=== PATIENT | male | born 1940 | race Caucasian/White ===

== ENCOUNTER 2022-09-16 08:09 | Day surgery (SDC) | payer MEDICARE, BC ==
[2022-09-15 14:30] LABS: BASOPHILS # (AUTO) 0.1 X10'3 (0-0.2); BASOPHILS % (AUTO) 0.8 % (0-1); EOSINOPHILS # (AUTO) 0.3 X10'3 (0-0.9); EOSINOPHILS % (AUTO) 4.3 % (0-6); HEMATOCRIT 39.5 % (42.0-52.0); HEMOGLOBIN 13.2 g/dl (14.0-17.9); LYMPHOCYTES # (AUTO) 1.6 X10'3 (1.1-4.8); LYMPHOCYTES % (AUTO) 23.5 % (21-51); MEAN CORPUSCULAR HEMOGLOBIN 31.7 PG (27.0-31.0); MEAN CORPUSCULAR HGB CONC 33.4 g/dL (33.0-36.5); MEAN CORPUSCULAR VOLUME 94.8 FL (78-98); MEAN PLATELET VOLUME 6.4 FL (7.4-10.4); MONOCYTES # (AUTO) 0.7 X10'3 (0-0.9); MONOCYTES % (AUTO) 10.1 % (2-12); NEUTROPHILS # (AUTO) 4.1 X10'3 (1.8-7.7); NEUTROPHILS % (AUTO) 61.3 % (42-75); PLATELET COUNT 226 X10'3 (140-440); RED BLOOD COUNT 4.16 X10'6 (4.70-6.10); RED CELL DISTRIBUTION WIDTH 13.8 % (11.5-14.5); WHITE BLOOD COUNT 6.8 X10'3 (4.5-11.0)
[2022-09-15 14:44] LABS: APTT 25 SECONDS (22-32)
[2022-09-15 14:47] LABS: ALANINE AMINOTRANSFERASE 30 U/L (12-78); ALBUMIN 3.7 G/DL (3.4-5.0); ALBUMIN/GLOBULIN RATIO 1.2 (1.1-1.5); ALKALINE PHOSPHATASE 75 IU/L (46-116); ANION GAP 6 (8-16); ASPARTATE AMINO TRANSFERASE 20 U/L (10-37); BILIRUBIN,TOTAL 0.7 MG/DL (0.1-1.0); BLOOD UREA NITROGEN 21 MG/DL (7-18); CALCIUM 8.9 MG/DL (8.5-10.1); CHLORIDE 104 MMOL/L (99-107); CREATININE 0.75 MG/DL (0.60-1.10); GLUCOSE 148 MG/DL (70-104); POTASSIUM 3.8 MMOL/L (3.5-5.1); SODIUM 139 MMOL/L (135-145); TOTAL CARBON DIOXIDE 29.4 MMOL/L (24-32); TOTAL PROTEIN 6.9 G/DL (6.4-8.2); eGFR > 90 ML/MIN
[2022-09-16] VITALS (14 sets, daily range): BP systolic 100–158; BP diastolic 40–72
[~2022-09-16] VITALS: Ht 172.7 cm; Wt 67.9 kg
[~2022-09-16 08:09] MED LIST: ASPI-1053 PO; ATOR40TA PO; CARV20CP PO; GALA16CA PO; LISI-642 PO; METF500T PO; OMEP20CA16 PO; SERT25TA PO
[2022-09-16] MEDS ORDERED: NITR0.4T51 (08:29)
[2022-09-16] MEDS ORDERED: SILD100T70 PO (08:29)
[2022-09-16] MEDS ORDERED: diphenhydrAMINE 25mg capsule PO PRN (08:35)
[2022-09-16] MEDS ORDERED: normal saline 1,000 ML IV SCH (08:35)
[2022-09-16] MEDS ORDERED: MESSAGE TO PHARMACY PO ONE (08:35)
[2022-09-16] MEDS ORDERED: LORazepam 0.5 MG tablet PO PRN (08:35)
[2022-09-16] MEDS ORDERED: nitroGLYCERIN 0.4mg SUBLingual tab SL PRN ×2 (08:35→11:50)
[2022-09-16] MEDS ORDERED: insulin Lispro (HumaLOG) vial - multi-dose SQ SCH (08:35)
[2022-09-16] MEDS ORDERED: METF-436 PO (08:39)
[2022-09-16] MEDS ORDERED: iohexol 350MG/ML 100ml bottle IV ONE ×2 (09:38→10:39)
[2022-09-16] MEDS ORDERED: midazolam 1 mg/ML 2ml injection ONE (09:38)
[2022-09-16] MEDS ORDERED: LIDOcaine 1% 30ml preserv. free vial ONE (09:38)
[2022-09-16] MEDS ORDERED: fentaNYL/PF 50MCG/1 ML 2ML syringe ONE (09:38)
[2022-09-16] MEDS ORDERED: iohexol 350 MG/ML 50ML vial IV ONE (09:38)
[2022-09-16] MEDS ORDERED: clopidogrel 300mg tablet ONE (10:55)
[2022-09-16 11:22] LABS: ISTAT HGB ART 12.2 g/dl (14.0-17.9); ISTAT Hct ART 36 %PCV (42-52); ISTAT O2 SATURATION ARTERIAL 98 % (95-98); ISTAT SOURCE ART
[2022-09-16] MEDS ORDERED: ondansetron/PF 4mg/2ml inj IV PRN (11:50)
[2022-09-16] MEDS ORDERED: OXAZEpam 15mg capsule PO PRN (11:50)
[2022-09-16] MEDS ORDERED: normal saline 1000ml 1,000 ML IV SCH (11:50)
[2022-09-16] MEDS ORDERED: proCHLORperazine 10 MG/2 ml inj IV PRN (11:50)
[2022-09-16] MEDS ORDERED: insulin glargine (Lantus) pen - multi-dose SQ SCH (21:00)
[2022-09-21 07:55] LABS: ISTAT Hct MIX 37 %PCV (42-52); ISTAT O2 SATURATION MIX VENOUS 75 % (60-80); ISTAT SOURCE VEN
== END 2022-09-16 17:50 | disposition home or self-care (01) ==
LOC: SSTAY O 08:09
PROVIDERS: ATTEND Internal Medicine Cardiovascular Disease
DX: I25.719 Atherosclerosis of autologous vein coronary artery bypass graft(s) with unspecified angina pectoris (principal); I34.0 Nonrheumatic mitral (valve) insufficiency; I10 Essential (primary) hypertension; E11.9 Type 2 diabetes mellitus without complications; K21.9 Gastro-esophageal reflux disease without esophagitis; F32.9 Major depressive disorder, single episode, unspecified; Z88.5 Allergy status to narcotic agent; Z90.49 Acquired absence of other specified parts of digestive tract; Z98.890 Other specified postprocedural states; Z79.899 Other long term (current) drug therapy; Z79.01 Long term (current) use of anticoagulants; Z79.82 Long term (current) use of aspirin; Z79.84 Long term (current) use of oral hypoglycemic drugs
CPT/HCPCS: 36415; 71046; 80053; 82803; 82948; 85014; 85025; 85610; 85730; 93461; J1644; J1815; J2250; J3010; J3490; J7030; Q0163; Q9967; 99152; 99153; A6258; A6449; C1751; C1760

== ENCOUNTER 2022-10-14 10:17 | Observation (INO) | payer MEDICARE, BC ==
[2022-10-12 13:45] LABS: BASOPHILS # (AUTO) 0.1 X10'3 (0-0.2); BASOPHILS % (AUTO) 1.3 % (0-1); EOSINOPHILS # (AUTO) 0.3 X10'3 (0-0.9); EOSINOPHILS % (AUTO) 4.8 % (0-6); HEMATOCRIT 39.8 % (42.0-52.0); HEMOGLOBIN 13.6 g/dl (14.0-17.9); LYMPHOCYTES # (AUTO) 1.6 X10'3 (1.1-4.8); LYMPHOCYTES % (AUTO) 24.8 % (21-51); MEAN CORPUSCULAR HEMOGLOBIN 32.5 PG (27.0-31.0); MEAN CORPUSCULAR HGB CONC 34.1 g/dL (33.0-36.5); MEAN CORPUSCULAR VOLUME 95.3 FL (78-98); MEAN PLATELET VOLUME 6.2 FL (7.4-10.4); MONOCYTES # (AUTO) 0.7 X10'3 (0-0.9); MONOCYTES % (AUTO) 10.4 % (2-12); NEUTROPHILS # (AUTO) 3.9 X10'3 (1.8-7.7); NEUTROPHILS % (AUTO) 58.7 % (42-75); PLATELET COUNT 235 X10'3 (140-440); RED BLOOD COUNT 4.17 X10'6 (4.70-6.10); RED CELL DISTRIBUTION WIDTH 13.5 % (11.5-14.5); WHITE BLOOD COUNT 6.6 X10'3 (4.5-11.0)
[2022-10-12 13:54] LABS: APTT 24 SECONDS (22-32)
[2022-10-12 13:56] LABS: ALANINE AMINOTRANSFERASE 33 U/L (12-78); ALBUMIN 3.8 G/DL (3.4-5.0); ALBUMIN/GLOBULIN RATIO 1.2 (1.1-1.5); ANION GAP 13 (8-16); ASPARTATE AMINO TRANSFERASE 20 U/L (10-37); BILIRUBIN,TOTAL 0.7 MG/DL (0.1-1.0); BLOOD UREA NITROGEN 20 MG/DL (7-18); BUN/CREATININE RATIO 22.2 (10.0-20.0); CALCIUM 9.1 MG/DL (8.5-10.1); CHLORIDE 103 MMOL/L (99-107); GLUCOSE 158 MG/DL (70-104); POTASSIUM 4.1 MMOL/L (3.5-5.1); SODIUM 140 MMOL/L (135-145); TOTAL CARBON DIOXIDE 24.5 MMOL/L (24-32); eGFR 81 ML/MIN
[2022-10-12 14:13] LABS: ALKALINE PHOSPHATASE 87 IU/L (46-116)
[~2022-10-14] VITALS: Ht 172.7 cm; Wt 68.6 kg
[2022-10-14] VITALS (22 sets, daily range): BP systolic 92–145; BP diastolic 44–74
[~2022-10-14 10:17] MED LIST changes: +CLOP75TA34 PO; +METF-436 PO; -METF500T PO; +NITR0.4T51 SL; -OMEP20CA16 PO
[2022-10-14] MEDS ORDERED: diphenhydrAMINE 25mg capsule PO PRN (10:35)
[2022-10-14] MEDS ORDERED: LORazepam 0.5 MG tablet PO PRN (10:35)
[2022-10-14] MEDS ORDERED: insulin Lispro (HumaLOG) vial - multi-dose SQ SCH (10:40)
[2022-10-14] MEDS ORDERED: dextrose 50%-water 50ml dispensing syringe IV PRN ×2 (10:40)
[2022-10-14] MEDS ORDERED: MESSAGE TO PHARMACY PO ONE (10:40)
[2022-10-14] MEDS ORDERED: DEXTROSE 15 GM of carb/4 tabs (each vial/BOTTLE has 4 tablets) PO PRN ×2 (10:40)
[2022-10-14] MEDS ORDERED: glucagon, human recombinant 1mg kit SUBCUT PRN (10:40)
[2022-10-14] MEDS ORDERED: LIDOcaine 1% (10mg/ml)w/preservative inj. 20ml MDV ONE (11:58)
[2022-10-14] MEDS ORDERED: heparin 1,000unit/ml 10ml vial 10 ML ONE (11:58)
[2022-10-14] MEDS ORDERED: tirofiban 12.5mg in NS 250mL 250 ML IV ONE (11:59)
[2022-10-14] MEDS ORDERED: iohexol 350MG/ML 100ml bottle IV ONE (11:59)
[2022-10-14] MEDS ORDERED: heparin 25,000 UNIT/250ml bag 0 ML IV ONE (11:59)
[2022-10-14] MEDS: normal saline 1,000 ML IV SCH ×2 (12:26→20:35)
[2022-10-14] MEDS ORDERED: proCHLORperazine 10 MG/2 ml inj ONE (12:30)
[2022-10-14] MEDS ORDERED: midazolam 1 mg/ML 2ml injection ONE (12:30)
[2022-10-14] MEDS ORDERED: fentaNYL/PF 50MCG/1 ML 2ML syringe ONE (12:31)
[2022-10-14] MEDS ORDERED: clopidogrel 75mg tablet ONE (14:01)
[2022-10-14] MEDS ORDERED: HYDROmorphone 1 mg/ml syringe IV ONE (14:35)
[2022-10-14] MEDS ORDERED: HYDROmorphone 1 mg/ml syringe IV PRN (14:35)
[2022-10-14] MEDS ORDERED: normal saline 1000ml 1,000 ML IV SCH ×2 (14:35→19:20)
[2022-10-14] MEDS ORDERED: OXAZEpam 15mg capsule PO PRN (14:35)
[2022-10-14] MEDS ORDERED: ondansetron/PF 4mg/2ml inj IV PRN (14:35)
[2022-10-14] MEDS ORDERED: proCHLORperazine 10 MG/2 ml inj IV PRN (14:35)
[2022-10-14] MEDS ORDERED: clopidogrel 75mg tablet PO ONE (14:35)
[2022-10-14] MEDS ORDERED: atropine 1 MG/1 ML vial IV ONE (17:00)
[2022-10-14 17:24] LABS: HEMOGLOBIN 12.2 g/dl (14.0-17.9); MEAN PLATELET VOLUME 6.5 FL (7.4-10.4); RED CELL DISTRIBUTION WIDTH 13.6 % (11.5-14.5)
[2022-10-14 17:26] LABS: BASOPHILS % (AUTO) 0.4 % (0-1); EOSINOPHILS # (AUTO) 0.3 X10'3 (0-0.9); EOSINOPHILS % (AUTO) 3.5 % (0-6); LYMPHOCYTES # (AUTO) 1.5 X10'3 (1.1-4.8); LYMPHOCYTES % (AUTO) 17.8 % (21-51); MEAN CORPUSCULAR HEMOGLOBIN 32.6 PG (27.0-31.0); MONOCYTES # (AUTO) 0.7 X10'3 (0-0.9); MONOCYTES % (AUTO) 8.2 % (2-12); NEUTROPHILS # (AUTO) 5.9 X10'3 (1.8-7.7); NEUTROPHILS % (AUTO) 70.1 % (42-75); PLATELET COUNT 187 X10'3 (140-440); RED BLOOD COUNT 3.75 X10'6 (4.70-6.10); WHITE BLOOD COUNT 8.4 X10'3 (4.5-11.0)
--- NOTE | 2022-10-14 18:21 | NUR ---
Problems reprioritized. Patient report given, questions answered & plan of care reviewed with KATHY Frey, pt will be going to room 2044.
[2022-10-14 18:25] LABS: PLATELET ESTIMATE NORMAL
[2022-10-14 18:26] LABS: BURR CELLS 2+
--- NOTE | 2022-10-14 18:30 | NUR ---
pt in room #2045, pt's nurse Giovanni at pt's bedside, all pt belongings transferred with pt to room #2045, pt VSS, pt's R groin dsg CDI, pt is in stable condition at this time and in no distress.
--- NOTE | 2022-10-14 18:40 | NUR ---
Patient in room ICU 2044. I have received report from Mally CHAVEZ and had the opportunity to ask questions and assume patient care. Patient transferred from [facility] to bed and tolerated well. Vitals currently within limits with patient on room air. Site to R groin currently CDI and no hematoma noted. Will continue to monitor patient.
[2022-10-14] MEDS ORDERED: nitroGLYCERIN 0.4mg SUBLingual tab SL PRN (19:15)
[2022-10-14] MEDS ORDERED: lisinopril 5mg tablet PO SCH (21:00)
[2022-10-14] MEDS ORDERED: atorvastatin 20mg tablet PO SCH (21:00)
[2022-10-14] MEDS ORDERED: insulin glargine (Lantus) pen - multi-dose SQ SCH (21:00)
[2022-10-14 21:45] LABS: MAGNESIUM 1.6 MG/DL (1.5-2.4); PHOSPHORUS 4.3 MG/DL (2.3-4.5)
[2022-10-15] VITALS (16 sets, daily range): BP systolic 101–141; BP diastolic 39–60
--- NOTE | 2022-10-15 04:14 | NUR ---
Patient currently stable. Patient asleep, vitals WNL. No hematoma to surgical site present, palpable pulse to R dorsalis pedis. Will continue to monitor.
--- NOTE | 2022-10-15 06:18 | NUR ---
Problems reprioritized. Patient report given, questions answered & plan of care reviewed with Aileen CHAVEZ.
[2022-10-15 07:26] LABS: BASOPHILS % (AUTO) 0.4 % (0-1); EOSINOPHILS # (AUTO) 0.3 X10'3 (0-0.9); EOSINOPHILS % (AUTO) 3.3 % (0-6); HEMOGLOBIN 12.5 g/dl (14.0-17.9); LYMPHOCYTES # (AUTO) 1.7 X10'3 (1.1-4.8); MEAN CORPUSCULAR HEMOGLOBIN 32.2 PG (27.0-31.0); MEAN CORPUSCULAR HGB CONC 33.8 g/dL (33.0-36.5); MEAN CORPUSCULAR VOLUME 95.2 FL (78-98); MEAN PLATELET VOLUME 6.6 FL (7.4-10.4); MONOCYTES # (AUTO) 0.8 X10'3 (0-0.9); MONOCYTES % (AUTO) 9.2 % (2-12); NEUTROPHILS # (AUTO) 5.9 X10'3 (1.8-7.7); NEUTROPHILS % (AUTO) 68.1 % (42-75); PLATELET COUNT 190 X10'3 (140-440); RED BLOOD COUNT 3.88 X10'6 (4.70-6.10); RED CELL DISTRIBUTION WIDTH 13.6 % (11.5-14.5); WHITE BLOOD COUNT 8.7 X10'3 (4.5-11.0)
[2022-10-15] MEDS ORDERED: pantoprazole 40mg Tablet.DR PO SCH (07:30)
[2022-10-15 07:38] LABS: ALANINE AMINOTRANSFERASE 26 U/L (12-78); ALBUMIN/GLOBULIN RATIO 1.1 (1.1-1.5); ALKALINE PHOSPHATASE 84 IU/L (46-116); ANION GAP 8 (8-16); ASPARTATE AMINO TRANSFERASE 21 U/L (10-37); BILIRUBIN,TOTAL 0.9 MG/DL (0.1-1.0); BLOOD UREA NITROGEN 17 MG/DL (7-18); BUN/CREATININE RATIO 18.3 (10.0-20.0); CALCIUM 8.4 MG/DL (8.5-10.1); CHLORIDE 106 MMOL/L (99-107); CREATININE 0.93 MG/DL (0.60-1.10); GLUCOSE 105 MG/DL (70-104); POTASSIUM 4.1 MMOL/L (3.5-5.1); SODIUM 140 MMOL/L (135-145); TOTAL PROTEIN 5.8 G/DL (6.4-8.2); eGFR 78 ML/MIN
[2022-10-15] MEDS ORDERED: aspirin 81mg tab.chew PO SCH (08:00)
[2022-10-15] MEDS ORDERED: clopidogrel 75mg tablet PO SCH (08:00)
[2022-10-15] MEDS: metFORMIN 500mg tablet PO SCH ×2 (08:00→13:00)
[2022-10-15] MEDS ORDERED: carvedilol 6.25mg tablet PO SCH (08:00)
[2022-10-15] MEDS ORDERED: sertraline 50mg tablet PO SCH (08:00)
[2022-10-15] MEDS ORDERED: donepezil 5mg tablet PO SCH (21:00)
== END 2022-10-15 15:35 | disposition home or self-care (01) ==
LOC: SSTAY O 10:17 → ICU 2S 10:18 → SSTAY O 18:45 → ICU 2S 18:45
PROVIDERS: ADMIT Internal Medicine Cardiovascular Disease; ATTEND Family Medicine
DX: I25.119 Atherosclerotic heart disease of native coronary artery with unspecified angina pectoris (principal); E11.9 Type 2 diabetes mellitus without complications; N17.9 Acute kidney failure, unspecified; I11.0 Hypertensive heart disease with heart failure; I50.32 Chronic diastolic (congestive) heart failure; D64.9 Anemia, unspecified; Z95.1 Presence of aortocoronary bypass graft; Z79.899 Other long term (current) drug therapy
CPT/HCPCS: 36415; 80053; 82948; 83690; 83735; 83880; 84100; 84443; 85008; 85025; 85610; 85730; 93005; 93926; 96374; 96375; C1725; C1751; C1769; C1874; C9600; C9604; G0378; J0461; J0780; J1644; J2250; J2405; J3010; J3246; J3490; J7030; Q0163; Q9967; 99152; 99153; A6258; A6449; C1760; J1815